=== PATIENT | female | born 1940 | race Caucasian/White ===

== ENCOUNTER 2016-11-22 01:14 | Emergency (ER) | payer MEDICARE, OTHER ==
[2016-11-22] MEDS ORDERED: methylPREDNISolone Sodium Succinate 125 MG/2 ML SDV IM ONE (01:20)
[2016-11-22] MEDS ORDERED: Famotidine 20 MG Tab PO ONE (01:27)
--- NOTE | 2016-11-22 01:28 | EDM.PDOC ---
ED HPI GENERAL MEDICAL PROBLEM - General Chief Complaint: Allergic Reaction Stated Complaint: rash Time Seen by Provider: 11/22/16 01:18 Source of Information: Reports: Patient History Limitations: Reports: No Limitations - History of Present Illness INITIAL COMMENTS - FREE TEXT/NARRATIVE: Developed rash late this evening. Generalized. Pruritic. No new foot/chemical/ plant exposures other than using markers tonight to make a banner. Has not used similar markers in past. No history of similar reactions to anything in past. No SOB. Took Benadryl around midnight. - Related Data Allergies Allergy/AdvReac Type Severity Reaction Status Date / Time Tetanus Vaccines and Toxoid Allergy Rash Verified 11/22/16 01:17 Home Meds: Home Meds traMADol [Ultram] 100 mg PO BID 11/22/16 [History] Past Medical History - Past Health History Medical/Surgical History: Denies Medical/Surgical History ED ROS ALLERGIC REACTION - Review of Systems Review Of Systems: ROS reveals no pertinent complaints other than HPI. Respiratory: Denies: Shortness of Breath, Wheezing, Pleuritic Chest Pain, Cough , Hemoptysis ED EXAM GENERAL NO PERIP PULSE - Physical Exam Exam: See Below Exam Limited By: No Limitations General Appearance: Alert, WD/WN, Other (itching/uncomfortable) Eye Exam: Bilateral Eye: EOMI, Normal Inspection, PERRL Ears: Normal External Exam Nose: Normal Inspection Throat/Mouth: Normal Inspection, Normal Oropharynx, Normal Voice, No Airway Compromise, Other (lips slightly puffy) Head: Atraumatic Neck: Supple, Non-Tender Respiratory/Chest: No Respiratory Distress, Lungs Clear, Normal Breath Sounds, No Accessory Muscle Use Cardiovascular: Regular Rate, Rhythm, No Edema, No Murmur GI/Abdominal: Soft, Non-Tender Back Exam: Normal Inspection Extremities: Normal Inspection, Non-Tender, Normal Capillary Refill Neurological: Alert, Oriented, Normal Cognition, Normal Gait, No Motor/Sensory Deficits Skin Exam: Warm, Dry, Rash (urticarial type rash all over face/neck/trunk/upper extremities. ) Course - Orders/Labs/Meds Meds: Medications Discontinued Medications Generic Name Dose Route Start Last Admin Trade Name Freq PRN Reason Stop Dose Admin Famotidine 20 mg 11/22/16 01:27 11/22/16 01:34 Pepcid PO 11/22/16 01:28 20 mg ONETIME ONE Administration Methylprednisolone Sodium Succinate 125 mg 11/22/16 01:20 11/22/16 01:31 Solu-Medrol IM 11/22/16 01:21 125 mg ONETIME ONE Administration - Re-Assessments/Exams Free Text/Narrative Re-Assessment/Exam: 11/22/16 02:28 Patient received IM Solumedrol and was observed for one hour. Did not complain of any SOB. She did feel that her lips were a little swollen. Rash and itching improved significantly over the hour. Lips felt back to normal. Patient requested to go home. Stable. Admission to observation was offered and she declined. Extensive precautions given prior to patient leaving. Discussed possible future need for Epi-Pen considering the type of reaction she had. At this time she has no other history of allergies and feels that she can avoid using markers again in future, if that is indeed what caused her reaction. She is to return immediately if symptoms return. Patient lives one mile from hospital. Departure - Departure Time of Disposition: :17 Disposition: Home, Self-Care 01 Condition: Good Clinical Impression: Urticaria - Discharge Information Instructions: Anaphylactic Reaction, Angioedema, [id number] Referrals: Darcy Hyman, EMPLOYEE BENEFITS MANAGER [Primary Care Provider] - Additional Instructions: Take Benadryl 2 tablets every 6 hours for 24 hours. After that take 1-2 tablets every 6 hours for the next 24 hours. Take as needed on day 3 onward. Start Prednisone this evening. Take 4 tablets day 1 and 2. Take 3 tablets days 3 and 4. Starting day 6 take 1 tablet daily until bottle is empty. Watch for any return of symptoms and follow up in ER if you have problems. Call ambulance if you have sudden severe problems, such as shortness of breath.
[2016-11-22 04:39] VITALS: BP 129/49
== END 2016-11-22 02:30 | disposition home or self-care (01) ==
LOC: LL.ED 01:14
DX: L50.9 Urticaria, unspecified (principal); Z88.7 Allergy status to serum and vaccine
CPT/HCPCS: 96372; 99283; A9270; J2930

== ENCOUNTER 2017-04-20 07:00 | Day surgery (SDC) | payer MEDICARE, OTHER ==
[~2017-04-20 07:00] MED LIST: Sodium Chloride 0.9% 10 ML Syringe FLUSH PRN
[2017-04-20] MEDS: Lactated Ringers 1,000 ML IV SCH ×2 (07:25→08:57)
[2017-04-20] MEDS ORDERED: fentaNYL 100 MCG/2 ML SDV ONE ×2 (07:55→08:11)
[2017-04-20] MEDS ORDERED: Midazolam 1 MG/ML 2 ML SDV ONE ×2 (07:55→08:11)
[2017-04-20] MEDS ORDERED: Propofol 200 MG/20 ML SDV ONE ×2 (07:56→08:11)
--- NOTE | 2017-04-20 08:16 | PCM.HPR ---
H & P Addendum review - H & P Addendum Review Date of Original H & P: 04/04/17 Date Reviewed: 04/20/17 Time Reviewed: 08:05 Patient was Examined: No Changes
--- NOTE | 2017-04-20 08:55 | PCM.OPNOTE ---
- General Post-Op/Procedure Note Date of Surgery/Procedure: 04/20/17 Operative Procedure(s): Colonoscopy Findings: Melanosis Coli Pre Op Diagnosis: Screening Anesthesia Technique: MAC Primary Surgeon: King oHwell Anesthesia Provider: Irina Butler EBL in mLs: 0 Complications: None Condition: Good Free Text/Narrative:: Intake & Output 04/19/17 04/20/17 04/20/17 22:59 06:59 14:59 Intake Total 1000 Balance 1000
[2017-04-20 09:16] VITALS: BP 123/66
--- NOTE | 2017-04-20 14:43 | OR ---
Date of Procedure: 04/20/2017 PREOPERATIVE DIAGNOSIS: Colon screening. POSTOPERATIVE DIAGNOSIS: Melanosis coli. PROCEDURE: Colonoscopy. ANESTHESIA: IV sedation. DESCRIPTION OF PROCEDURE: The patient was brought to the procedure room, where she was placed on her left side, and IV sedation administered. Digital rectal exam was performed which was normal. Colonoscope was inserted and advanced to the level of the cecum with difficulty getting around the hepatic flexure and ascending colon. With changing to the supine position and providing pressure on the abdomen, I was able to advance into the cecum which was confirmed by identifying the appendiceal lumen and ileocecal valve. Prep was good and surfaces were well visualized. 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 I did not find any polyps or other abnormalities. Retroflexion was normal. Air was removed and the scope withdrawn. The patient tolerated the procedure well and returned to recovery in stable condition. I do not recommend a routine colon screening since she will be over 79 years old in 5 years. PAUL KUNZ MD /[id number]
== END 2017-04-20 10:06 | disposition home or self-care (01) ==
LOC: LL.SDS 07:00
PROVIDERS: ATTEND Surgery
DX: Z12.11 Encounter for screening for malignant neoplasm of colon (principal); K63.89 Other specified diseases of intestine; E78.00 Pure hypercholesterolemia, unspecified; Z79.899 Other long term (current) drug therapy; Z79.891 Long term (current) use of opiate analgesic; Z98.890 Other specified postprocedural states; Z88.8 Allergy status to other drugs, medicaments and biological substances; Z87.891 Personal history of nicotine dependence; J30.2 Other seasonal allergic rhinitis
CPT/HCPCS: G0121; J2250; J2704; J3010; J7120; 00810-QZ

== ENCOUNTER → 2019-03-28 | Outpatient (CLI) | payer MEDICARE, OTHER | LOC: LL.CLIN 11:30 | PROVIDERS: ATTEND Nurse Practitioner | DX: Z23 Encounter for immunization (principal); J00 Acute nasopharyngitis [common cold] | CPT/HCPCS: 90662; 99213; G0008 ==

== ENCOUNTER 2019-04-18 08:32 | Emergency (ER) | payer MEDICARE, OTHER ==
--- NOTE | 2019-04-18 08:46 | EDM.PDOC ---
ED HPI GENERAL MEDICAL PROBLEM - General Chief Complaint: General Stated Complaint: dizziness, nausea Time Seen by Provider: 04/18/19 08:45 Source of Information: Reports: Patient, Family (), Old Records ([facility] chart/EMR), Other ([facility] EMR) History Limitations: Reports: No Limitations - History of Present Illness INITIAL COMMENTS - FREE TEXT/NARRATIVE: The patient was brought to the emergency room via private automobile by her for evaluation of moderate diffuse vertigo, dizziness, and nausea associated with head movement with symptoms starting about 2 AM this morning. No history of known exposure to infection. The patient denies any chest pain/ pressure, heart flutter, orthostasis, orthopnea, diaphoresis, paresthesias, recent decreased exercise tolerance, or any other anginal-type symptoms. No recent history of abdominal pain, heartburn, emesis, diarrhea, melena, gross hematochezia, or any food intolerance, including fatty foods, etc.. The patient also denies any recent fever, cough, wheezing, dyspnea, etc.. No history of recent headaches, visual changes, diplopia, change in mental status, or other change in neurological status. She denies any specific pain or discomfort other than some nonspecific left scapular pain with movement secondary to nailing multiple nails yesterday with no history of acute injury. Onset: Today, Sudden Onset Date: 04/18/19 Onset Time: 02:00 Duration: Constant, Intermittent Location: Reports: Upper Extremity, Left (Left scapular as above). Denies: Head , Face, Neck, Chest, Abdomen, Back, Pelvis, Upper Extremity, Right, Lower Extremity, Right, Radiates to Quality: Reports: Same as Previous Episode, Sharp Severity: Mild Improves with: Reports: Rest Worsens with: Reports: Movement Context: Reports: Other (As above). Denies: Sick Contact, Trauma Associated Symptoms: Reports: Nausea/Vomiting (No emesis ). 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: Other (see below) (None) Right Upper Back Pain Score (Numeric/FACES): 2 (Left scapular) - Related Data Allergies Allergy/AdvReac Type Severity Reaction Status Date / Time Tetanus Vaccines and Toxoid Allergy Rash Verified 04/18/19 08:46 Home Meds: Home Meds traMADol [Ultram] 100 mg PO BID 11/22/16 [History] Krill Oil 1,000 mg PO DAILY 04/20/17 [History] L.acidoph,Paracasei, B.lactis [Probiotic] 1 each PO DAILY 04/20/17 [History] Magnesium Oxide [Magnesium] 400 mg PO BEDTIME 04/20/17 [History] Meloxicam [Mobic] 7.5 mg PO BID PRN 04/20/17 [History] Non-Formulary Medication [NF Drug] 0.25 tsp PO DAILY 04/20/17 [History] Non-Formulary Medication [NF Drug] 2 tsp PO DAILY 04/20/17 [History] Sodium Chloride [Saline Nasal Mist] 1 spray NS ASDIRECTED PRN 04/20/17 [History] Zinc Gluconate [Zinc] 50 mg PO DAILY 04/20/17 [History] Aspirin [Halfprin] 81 mg PO DAILY 04/18/19 [History] Cholecalciferol (Vitamin D3) [Vitamin D3] 1,000 unit PO DAILY 04/18/19 [History] Meclizine HCl 25 mg PO QID PRN #30 tablet 04/18/19 [Rx] Ubidecarenone [Co Q10] 60 mg PO DAILY 04/18/19 [History] Past Medical History - Past Health History Medical/Surgical History: Denies Medical/Surgical History HEENT History: Reports: Allergic Rhinitis, Impaired Vision, Other (See Below). Denies: Cataract, Glaucoma, Hard of Hearing, Macular Degeneration, Otitis Media , Retinal Detachment Other HEENT History: Patient wears glasses. Dry eye syndrome. Allergic rhinitis with previous immunotherapy. Cardiovascular History: Reports: CAD, Cardiomyopathy, Heart Failure, Heart Murmur, High Cholesterol, HI, PVD, Other (See Below) Other Cardiovascular History: HI after pneumonia with possible sepsis. Moderate carotid occlusive disease. Aortic valve stenosis by clinical exam possibly secondary to rheumatic fever as below. 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 Right-sided benign hepatic cyst. Genitourinary History: Reports: None DELINEATOR History: Reports: , Spontaneous : 3 Para: 2 LMP (Approximate): Other (See Below) Other DELINEATOR History: Preeclampsia with first in 1957. SAB during first trimester. Otherwise, Full term without complications during pregnancies or deliveries. Menopause at age 42. Dyspareunia. Musculoskeletal History: Reports: Arthritis, Back Pain, Chronic, Fracture, Fibromyalgia, Neck Pain, Chronic, Osteoarthritis, Osteoporosis Other Musculoskeletal History: History of L3-L4 disc prolapse with additional kyphoscoliosis with back surgeries as below.. Carpal tunnel syndrome. Cervical spondylosis. Positive RACQUEL with no known history of SLE. Bilateral lateral ligament mild tears of the left knee in March 2010 with no surgery required. Questionable left foot fracture on 07/29/15. Neurological History: Reports: Migraines, Other (See Below) Other Neuro History: Benign left frontal meningioma. Psychiatric History: Reports: Addiction, Other (See Below) Other Psychiatric History: group home opioid/Ultram use with pain contract. Endocrine/Metabolic History: Reports: Osteopenia, Osteoporosis, Vitamin D Deficiency, Other (See Below) Other Endocrine/Metabolic History: Hypomagnesemia. Hematologic History: Reports: Other (See Below) Other Hematologic History: History of leukopenia and macrocytosis. Immunologic History: Reports: Immunosuppression, Other (See Below) Other Immunologic History: History of leukopenia. Oncologic (Cancer) History: Reports: None Dermatologic History: Reports: Angiodema, Other (See Below). Denies: Eczema, Psoriasis Other Dermatologic History: Angioedema secondary to allergic reaction on 11/22/16. 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 - Past Surgical History HEENT Surgical History: Reports: Adenoidectomy, Naso-Sinus Surgery, Tonsillectomy, Other (See Below) Other HEENT Surgeries/Procedures: Tonsillectomy and adenoidectomy at age 11. Endoscopic sinus surgery on 09/16/05. GI Surgical History: Reports: Appendectomy, Colonoscopy, Other (See Below) Other GI Surgeries/Procedures: Colonoscopy on 04/20/17, 08/25/11, and 07/14/05. Female Surgical History: Reports: Breast Reconstruction, Other (See Below) Other Female Surgeries/Procedures: Bilateral breast reduction on 01/01/14. Neurological Surgical History: Reports: Laminectomy, Lumbar Spine, Spinal Fusion , Vertebroplasty, Other (See Below) Other Neurological Surgeries/Procedures: L3for laminectomy in 1983 with 4 previous back surgeries including an L3L5 spinal fusion with concomitant bone graft on 08/06/08 with subsequent L5 screw revision and L4-5 laminectomy on . L1 vertebroplasty on 02/03/12. Musculoskeletal Surgical History: Reports: Other (See Below) Other Musculoskeletal Surgeries/Procedures:: ORIF of right thumb secondary to arthritic changes on 08/05/14. Oncologic Surgical History: Reports: Bone Marrow Aspiration, Other (See Below) Other Oncologic Surgeries/Procedures: Bone marrow needle aspiration biopsy on 11/26/12. - Past Imaging History Past Imaging History: Reports: Bone Scan (Bone scan of the feet on 04/28/06), Cardiac Echo (03/06/19 and 09/12/18.), Carotid US (07/01/08 and 09/01/06.), CAT Scan (CT of the lumbar spine on 02/13/12. CT of the chest on 02/27/18. CT of the cervical spine on 02/10/17. CT of the sinuses on 08/31/05), DEXA Scan (Last on .), Mammogram (Last mammogram on 03/06/19), MRI (MRI of the thoracic spine on 11/13/12 and 05/01/12. MRI of the lumbar spine on 05/01/12 and 11/29/11. MRI of the left knee on 04/07/10. MRI of the cervical spine on 10/14/08. MRI of the brain on 10/14/08.), PFT, Ultrasound (Pelvic ultrasound on 01/23/13. Abdominal aortic ultrasound on 07/01/08. Abdominal ultrasound on 05/21/02.) Social & Family History - Family History Cardiac: Reports: Cardiomyopathy, Heart Failure, Other (See Below) Other Cardiac Family History: Father with fatal CHF in his 80s. Musculoskeletal: Reports: SLE, Other (See Below) Other Musculoskeletal Family History: Niece with SLE. Neurological: Reports: CVA, Other (See Below) Other Neurological Family History: Father with CVA in his 70s with mother having a CVA in her 80s. Endocrine/Metabolic: Reports: Diabetes, type II, IDDM, Other (See Below) Other Endocrine/Metabolic Family History: Maternal grandmother, maternal uncle, and maternal cousin with IDDM. Oncologic: Reports: Other (See Below) Other Oncologic Family History: Paternal grandfather with unknown type of fatal cancer in his 60s. - Tobacco Use Smoking Status *Q: Former Smoker Tobacco Use Within Last Twelve Months: No Years of Tobacco use: 10 Packs/Tins Daily: 0.5 Packs/Tins Daily Comment: Smoked between 0.51 packs per day between ages 19 and 29. Used Tobacco, but Quit: Yes Smoking Cessation Information Provided To Patient: No Second Hand Smoke Exposure: No Second Hand Smoke Education Provided: No - Caffeine Use Caffeine Use: Reports: Coffee Caffeine Use Comment: 2-3 cups a day - Living Situation & Occupation Living situation: Reports: (1958. 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 ED EXAM, GENERAL - Physical Exam Exam: See Below Exam Limited By: No Limitations General Appearance: Alert, WD/WN, No Apparent Distress Eye Exam: Bilateral Eye: EOMI, Normal Fundi, Normal Inspection (No nystagmus but some vertigo with forward head movement), PERRL Ears: Normal External Exam, Normal Canal, Hearing Grossly Normal, Normal TMs Nose: Normal Inspection, Normal Mucosa, No Blood Throat/Mouth: Normal Inspection, Normal Lips, Normal Teeth (Multiple missing teeth), Normal Gums, Normal Oropharynx, Normal Voice, No Airway Compromise. No : Dysphagia, Perioral Cyanosis Head: Atraumatic, Normocephalic. No: Facial Swelling, Facial Tenderness, Sinus Tenderness Neck: Supple, Non-Tender, Full Range of Motion, Carotid Bruit (Mild bilateral carotid bruits versus transmitted heart sounds). No: Lymphadenopathy (L), Lymphadenopathy (R), Thyromegaly Respiratory/Chest: No Respiratory Distress, Lungs Clear, Normal Breath Sounds, No Accessory Muscle Use, Chest Non-Tender. No: Pleural Rub, Retractions Cardiovascular: Normal Peripheral Pulses, Regular Rate, Rhythm, No Edema, No Gallop, No JVD, No Rub, Systolic Murmur (2/6 NORA of the aortic valve with borderline 1/6 NORA of the mitral valve.). No: No Murmur, Gallop/S3, Gallop/S4, Friction Rub Peripheral Pulses: 2+: Radial (L), Radial (R), Dorsalis Pedis (L), Dorsalis Pedis (R) GI/Abdominal: Normal Bowel Sounds, Soft, Non-Tender, No Organomegaly, No Distention, No Abnormal Bruit, No Mass. No: Guarding (Female) Exam: Deferred Rectal (Female) Exam: Deferred Back Exam: Other (Mild palpation pain over the superior left scapula with no local swelling, ecchymosis, etc.). No: CVA Tenderness (L), CVA Tenderness (R), Muscle Spasm, Paraspinal Tenderness, Vertebral Tenderness Extremities: Normal Inspection, Normal Range of Motion, Non-Tender, No Pedal Edema, Normal Capillary Refill. No: Armida's Sign Neurological: Alert, Oriented, CN II-XII Intact, Normal Cognition, Normal Gait, Normal Reflexes (Negative Babinski's, finger to nose, and pronator rotation tests. No evidence of facial paresis, tongue deviation, orthostasis, etc.. Excellent reverse thought processes.), No Motor/Sensory Deficits Psychiatric: Normal Affect, Normal Mood Skin Exam: Warm, Dry, Intact, Normal Color, No Rash. No: Diaphoretic, Wound/ Incision Lymphatic: No Adenopathy Course - Vital Signs Last Recorded V/S: Last Vital Signs Temp 36.4 C 04/18/19 08:34 Pulse 66 04/18/19 08:46 Resp 15 04/18/19 08:46 BP 124/83 04/18/19 08:46 Pulse Ox 98 04/18/19 08:46 Vital Signs - 24 hr 04/18/19 04/18/19 08:34 08:46 Temperature [ 36.4 C Temporal] Pulse, 67 66 Peripheral [ Pulse Oximetry] Respiratory 16 15 Rate Blood Pressure 148/66 H 124/83 [Left Upper Arm ] O2 Sat by Pulse 99 98 Oximetry - Orders/Labs/Meds Orders: Active Orders 24 hr Category Date Time Status Cardiac Monitoring [RC] . DIRECTED Care 04/18/19 08:45 Active Obtain Past Medical Record [OM.PC] Routine Oth 04/18/19 08:47 Active Labs: None Meds: Medications Discontinued Medications Generic Name Dose Route Start Last Admin Trade Name [place] PRN Reason Stop Dose Admin Methylprednisolone Acetate 80 mg 04/18/19 09:03 04/18/19 09:22 Depo-Medrol IM 04/18/19 09:04 80 mg ONETIME ONE Administration - Radiology Interpretation Free Text/Narrative:: None Departure - Departure Time of Disposition: 09:40 Disposition: Home, Self-Care 01 Condition: Good Clinical Impression: Heart murmur Labyrinthitis Qualifiers: Laterality: unspecified laterality Qualified Code(s): H83.09 - Labyrinthitis, unspecified ear Coronary artery disease Qualifiers: Coronary Disease-Associated Artery/Lesion type: [place] artery [place] vs. transplanted heart: [place] heart Associated angina: without angina Qualified Code(s): I25.10 - Atherosclerotic heart disease of [place] coronary artery without angina pectoris Osteoarthritis Qualifiers: Osteoarthritis location: multiple joints Osteoarthritis type: primary Qualified Code(s): M15.0 - Primary generalized (osteo)arthritis - Discharge Information *PRESCRIPTION DRUG MONITORING PROGRAM REVIEWED*: Not Applicable *COPY OF PRESCRIPTION DRUG MONITORING REPORT IN PATIENT JOE: Not Applicable Prescriptions: Meclizine HCl 25 mg PO QID PRN #30 tablet PRN Reason: Dizziness Instructions: Labyrinthitis, [id number], Methylprednisolone Suspension for Injection Referrals: Darcy Hyman, SLEEP LAB TECHNOLOGIST [Primary Care Provider] - Forms: ED Department Discharge Additional Instructions: 1. Follow up with your regular provider in 10-14 days as needed, if symptoms persist. Bring these discharge instructions with you to that visit.. 2. Fall precautions with current dizziness as discussed 3. Immediately after this visit verify that your cellular telephone's voicemail has been activated and is empty. Also verify that your home telephone 's answering machine is operating properly and has space to receive messages. Note that it is sometimes necessary for us to be able to contact you at a later date to discuss your medical care. 4. Please remember that we are ALWAYS here for you and want to answer any questions you may have. Feel free to call the hospital any time and we call you back ABNER. 5. Sedation, dry mouth, confusion, etc. precautions as discussed when taking the OTC meclizine - Problem List & Annotations (1) Labyrinthitis SNOMED Code(s): 61943860 Code(s): H83.09 - LABYRINTHITIS, UNSPECIFIED EAR Status: Acute Priority: High Onset Date: 04/18/19 Annotation/Comment:: Note that her pet cat has had similar type symptoms, which were resolved with recent prednisone. Symptomatic relief as per discharge instructions. No indication for antibiotic therapy at this time. Continue to observe symptoms closely secondary to her previous history of carotid occlusive disease with consideration of repeat carotid artery Doppler studies, if symptoms remain refractory to therapy. Qualifiers: Laterality: unspecified laterality Qualified Code(s): H83.09 - Labyrinthitis, unspecified ear (2) Coronary artery disease SNOMED Code(s): 16202770 Code(s): I25.10 - ATHSCL HEART DISEASE OF [place] CORONARY ARTERY W/O ANG PCTRS Status: Chronic Priority: Medium Annotation/Comment:: No chest pain or anginal type symptoms. Qualifiers: Coronary Disease-Associated Artery/Lesion type: [place] artery [place] vs. transplanted heart: [place] heart Associated angina: without angina Qualified Code(s): I25.10 - Atherosclerotic heart disease of [place] coronary artery without angina pectoris (3) Heart murmur SNOMED Code(s): 09391456 Code(s): R01.1 - CARDIAC MURMUR, UNSPECIFIED Status: Chronic Priority: Medium Annotation/Comment:: Probable aortic valve stenosis likely secondary to previous rheumatic fever. Continue to observe closely by her regular provider with consideration of echocardiogram, etc. (4) Osteoarthritis SNOMED Code(s): 093904850 Code(s): M19.90 - UNSPECIFIED OSTEOARTHRITIS, UNSPECIFIED SITE Status: Chronic Priority: Medium Annotation/Comment:: Stable by history Qualifiers: Osteoarthritis location: multiple joints Osteoarthritis type: primary Qualified Code(s): M15.0 - Primary generalized (osteo)arthritis - Problem List Review Problem List Initiated/Reviewed/Updated: Yes - My Orders Last 24 Hours: My Active Orders 04/18/19 08:45 Cardiac Monitoring [RC] . DIRECTED 04/18/19 08:47 Obtain Past Medical Record [OM.PC] Routine - Assessment/Plan Last 24 Hours: My Active Orders 04/18/19 08:45 Cardiac Monitoring [RC] . DIRECTED 04/18/19 08:47 Obtain Past Medical Record [OM.PC] Routine Assessment:: As above Plan: As above. Extensive precautions were given to the patient and her , who are in agreement with the treatment plan. See Patient Instructions for further treatment and plan.
[2019-04-18 08:47] VITALS: BP 124/83; PULSE 66
[2019-04-18] MEDS ORDERED: methylPREDNISolone Acetate 80 MG/ML SDV IM ONE (09:03)
== END 2019-04-18 09:40 | disposition home or self-care (01) ==
LOC: LL.ED 08:32
DX: R01.1 Cardiac murmur, unspecified (principal); H83.09 Labyrinthitis, unspecified ear; I25.10 Atherosclerotic heart disease of native coronary artery without angina pectoris; I25.2 Old myocardial infarction; M15.0 Primary generalized (osteo)arthritis; J44.9 Chronic obstructive pulmonary disease, unspecified; Z87.891 Personal history of nicotine dependence; Z79.82 Long term (current) use of aspirin
CPT/HCPCS: 99283; J1040

== ENCOUNTER 2020-05-26 18:55 | Emergency (ER) | payer MEDICARE, OTHER ==
[2020-05-26] MEDS ORDERED: Meclizine 25 MG Tab PO ONE (19:18)
[2020-05-26] MEDS ORDERED: Meclizine 25 MG Tab ONE ×2 (19:22→19:23)
[2020-05-26 19:31] VITALS: BP 139/55; PULSE 71
[2020-05-26] MEDS ORDERED: Ondansetron 4 MG/2 ML SDV IVPUSH ONE (19:37)
[2020-05-26] MEDS ORDERED: Sodium Chloride 0.9% 500 ML IV SCH (19:45)
[2020-05-26 19:53] LABS: CHLORIDE,CL 103 mmol/L (98-107); SODIUM,NA 138 mmol/L (136-145)
--- NOTE | 2020-05-26 20:11 | EDM.PDOC ---
ED HPI GENERAL MEDICAL PROBLEM - General Chief Complaint: General Stated Complaint: nausea Time Seen by Provider: 05/26/20 19:10 Source of Information: Reports: Patient History Limitations: Reports: No Limitations - History of Present Illness INITIAL COMMENTS - FREE TEXT/NARRATIVE: Pt presents with vertigo symptoms that began this AM Much worse when moves around or moves head Better when sitting still or lying down Has had same in past Pt with N/V when dizziness is at the worse No trauma No neuro symptoms Back Pain Score (Numeric/FACES): 6 - Related Data Allergies Allergy/AdvReac Type Severity Reaction Status Date / Time Tetanus Vaccines and Toxoid Allergy Rash Verified 05/26/20 19:02 Home Meds: Home Meds traMADol [Ultram] 100 mg PO BID 11/22/16 [History] Krill Oil 1,000 mg PO DAILY 04/20/17 [History] L.acidoph,Paracasei, B.lactis [Probiotic] 1 each PO DAILY 04/20/17 [History] Magnesium Oxide [Magnesium] 400 mg PO BEDTIME 04/20/17 [History] Meloxicam [Mobic] 7.5 mg PO BID PRN 04/20/17 [History] Non-Formulary Medication [NF Drug] 0.25 tsp PO DAILY 04/20/17 [History] Non-Formulary Medication [NF Drug] 2 tsp PO DAILY 04/20/17 [History] Sodium Chloride [Saline Nasal Mist] 1 spray NS ASDIRECTED PRN 04/20/17 [History] Zinc Gluconate [Zinc] 50 mg PO DAILY 04/20/17 [History] Aspirin [Halfprin] 81 mg PO DAILY 04/18/19 [History] Cholecalciferol (Vitamin D3) [Vitamin D3] 1,000 unit PO DAILY 04/18/19 [History] Ubidecarenone [Co Q10] 60 mg PO DAILY 04/18/19 [History] carvediloL [Coreg] 3.125 mg PO BID 05/26/20 [History] Past Medical History - Past Health History Medical/Surgical History: Denies Medical/Surgical History HEENT History: Reports: Allergic Rhinitis, Impaired Vision, Other (See Below) Other HEENT History: Patient wears glasses. Dry eye syndrome. Allergic rhinitis with previous immunotherapy. Cardiovascular History: Reports: CAD, Cardiomyopathy, Heart Failure, Heart Murmur, High Cholesterol, [place], PVD, Other (See Below) Other Cardiovascular History: [place] after pneumonia with possible sepsis. Moderate carotid occlusive disease. Aortic valve stenosis by clinical exam possibly secondary to rheumatic fever as below. 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 Right-sided benign hepatic cyst. Genitourinary History: Reports: None STRATEGIC DEVELOPMENT MANAGER History: Reports: , Spontaneous Other STRATEGIC DEVELOPMENT MANAGER History: Preeclampsia with first in 1957. SAB during first trimester. Otherwise, Full term without complications during pregnancies or deliveries. Menopause at age 42. Dyspareunia. Musculoskeletal History: Reports: Arthritis, Back Pain, Chronic, Fracture, Fibromyalgia, Neck Pain, Chronic, Osteoarthritis, Osteoporosis Other Musculoskeletal History: History of L3-L4 disc prolapse with additional kyphoscoliosis with back surgeries as below.. Carpal tunnel syndrome. Cervical spondylosis. Positive RACQUEL with no known history of SLE. Bilateral lateral ligament mild tears of the left knee in March 2010 with no surgery required. Questionable left foot fracture on 07/29/15. Neurological History: Reports: Migraines, Other (See Below) Other Neuro History: Benign left frontal meningioma. 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 Endocrine/Metabolic History: Reports: Osteopenia, Osteoporosis, Vitamin D Deficiency, Other (See Below) Other Endocrine/Metabolic History: Hypomagnesemia. Hematologic History: Reports: Other (See Below) Other Hematologic History: History of leukopenia and macrocytosis. Immunologic History: Reports: Immunosuppression, Other (See Below) Other Immunologic History: History of leukopenia. Oncologic (Cancer) History: Reports: None Dermatologic History: Reports: Angiodema, Other (See Below) Other Dermatologic History: Angioedema secondary to allergic reaction on 11/22/16. 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 - Past Surgical History HEENT Surgical History: Reports: Adenoidectomy, Naso-Sinus Surgery, Tonsillec dominga, Other (See Below) Other HEENT Surgeries/Procedures: Tonsillectomy and adenoidectomy at age 11. Endoscopic sinus surgery on 09/16/05. GI Surgical History: Reports: Appendectomy, Colonoscopy, Other (See Below) Other GI Surgeries/Procedures: Colonoscopy on 04/20/17, 08/25/11, and 07/14/05. Female Surgical History: Reports: Breast Reconstruction, Other (See Below) Other Female Surgeries/Procedures: Bilateral breast reduction on 01/01/14. Neurological Surgical History: Reports: Laminectomy, Lumbar Spine, Spinal Fusion, Vertebroplasty, Other (See Below) Other Neurological Surgeries/Procedures: L3for laminectomy in 1983 with 4 previous back surgeries including an L3L5 spinal fusion with concomitant bone graft on 08/06/08 with subsequent L5 screw revision and L4-5 laminectomy on 08/12/08. L1 vertebroplasty on 02/03/12. Musculoskeletal Surgical History: Reports: Other (See Below) Other Musculoskeletal Surgeries/Procedures:: ORIF of right thumb secondary to arthritic changes on 08/05/14. Oncologic Surgical History: Reports: Bone Marrow Aspiration, Other (See Below) Other Oncologic Surgeries/Procedures: Bone marrow needle aspiration biopsy on 11/26/12. - Past Imaging History Past Imaging History: Reports: Bone Scan (Bone scan of the feet on 04/28/06), Cardiac Echo (03/06/19 and 09/12/18.), Carotid US (07/01/08 and 09/01/06.), CAT Scan (CT of the lumbar spine on 02/13/12. CT of the chest on 02/27/18. CT of the cervical spine on 02/10/17. CT of the sinuses on 08/31/05), DEXA Scan (Last on 10/14/16.), Mammogram (Last mammogram on 03/06/19), MRI (MRI of the thoracic spine on 11/13/12 and 05/01/12. MRI of the lumbar spine on 05/01/12 and 11/29/11. MRI of the left knee on 04/07/10. MRI of the cervical spine on 10/14/08. MRI of the brain on 10/14/08.), PFT, Ultrasound (Pelvic ultrasound on 01/23/13. Abdominal aortic ultrasound on 2/10/09. Abdominal ultrasound on 05/21/02.) Social & Family History - Family History Cardiac: Reports: Cardiomyopathy, Heart Failure, Other (See Below) Other Cardiac Family History: Father with fatal CHF in his 80s. Musculoskeletal: Reports: SLE, Other (See Below) Other Musculoskeletal Family History: Niece with SLE. Neurological: Reports: CVA, Other (See Below) Other Neurological Family History: Father with CVA in his 70s with mother having a CVA in her 80s. Endocrine/Metabolic: Reports: Diabetes, type II, IDDM, Other (See Below) Other Endocrine/Metabolic Family History: Maternal grandmother, maternal uncle, and maternal cousin with IDDM. Oncologic: Reports: Other (See Below) Other Oncologic Family History: Paternal grandfather with unknown type of fatal cancer in his 60s. - Caffeine Use Caffeine Use: Reports: Coffee Caffeine Use Comment: 2-3 cups a day - Living Situation & Occupation Living situation: Reports: (1958. 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.) ED ROS GENERAL - Review of Systems Review Of Systems: See Below Constitutional: Reports: No Symptoms HEENT: Reports: No Symptoms Respiratory: Reports: No Symptoms Cardiovascular: Reports: No Symptoms GI/Abdominal: Reports: Nausea, Vomiting Musculoskeletal: Reports: No Symptoms Neurological: Reports: Dizziness ED EXAM, GENERAL - Physical Exam Exam: See Below Exam Limited By: No Limitations General Appearance: Alert, WD/WN, Mild Distress Eye Exam: Bilateral Eye: EOMI, PERRL Ears: Normal TMs Nose: Normal Inspection Throat/Mouth: Normal Oropharynx Head: Atraumatic Neck: Supple, Non-Tender Respiratory/Chest: Lungs Clear Cardiovascular: Regular Rate, Rhythm GI/Abdominal: Soft, Non-Tender Extremities: Normal Inspection Neurological: Alert, Oriented, No Motor/Sensory Deficits, Other (Dizzy with movement Resolves when not moving) Psychiatric: Normal Affect Course - Vital Signs Last Recorded V/S: Last Vital Signs Temp 98 F 05/26/20 19:28 Pulse 71 05/26/20 19:28 Resp 16 05/26/20 19:28 BP 139/55 L 05/26/20 19:28 Pulse Ox 100 05/26/20 19:28 - Orders/Labs/Meds Orders: Active Orders 24 hr Category Date Time Status Sodium Chloride 0.9% [Normal Saline] 500 ml Med 05/26/20 19:45 Active IV .BOLUS Medication Orders Sodium Chloride (Normal Saline) 500 mls @ 500 mls/hr IV .BOLUS CAROLYN Last Admin: 05/26/20 20:02 Dose: 500 mls/hr Documented by: [id number] Labs: Laboratory Tests 05/26/20 05/26/20 Range/Units 19:30 19:30 WBC 7.1 (4.0-10.2) K/uL RBC 4.28 (3.77-5.09) M/uL Hgb 14.4 (11.7-15.5) g/dL Hct 41.8 (34.0-46.0) % MCV 97.7 (84.0-98.0) fL MCH 33.6 H (28.2-33.3) pg MCHC 34.4 (31.7-36.0) g/dL RDW 12.2 (11.2-14.1) % Plt Count 126 L (150-350) K/uL Add Manual Diff Yes Neutrophils % (Manual) 81 Lymphocytes % (Manual) 18 Monocytes % (Manual) 1 Absolute Neutrophils 5.7510 Lymphocytes # (Manual) 1.2780 Monocytes # (Manual) 0.0710 Sodium 138 (136-145) mmol/L Potassium 3.8 (3.5-5.1) mmol/L Chloride 103 (98-107) mmol/L Carbon Dioxide 25.8 (21.0-32.0) mmol/L BUN 20 H (7-18) mg/dL Creatinine 0.54 (0.51-1.17) mg/dL Est Cr Clr Drug Dosing 58.69 mL/min Estimated GFR (MDRD) > 60 mL/min Glucose 139 H (74-106) mg/dL Calcium 9.1 (8.5-10.1) mg/dL Meds: Medications Generic Name Dose Route Start Last Admin Trade Name Freq PRN Reason Stop Dose Admin Sodium Chloride 500 mls @ 500 mls/hr 05/26/20 19:45 05/26/20 20:02 Normal Saline IV 500 mls/hr .BOLUS CAROLYN Administration Discontinued Medications Generic Name Dose Route Start Last Admin Trade Name Freq PRN Reason Stop Dose Admin Meclizine HCl 25 mg 05/26/20 19:18 05/26/20 19:25 Antivert PO 05/26/20 19:19 25 mg ONETIME ONE Administration Meclizine HCl Confirm 05/26/20 19:22 05/26/20 19:26 Antivert Administered 05/26/20 19:23 Not Given Dose 25 mg .ROUTE .STK-MED ONE Meclizine HCl Confirm 05/26/20 19:23 05/26/20 19:26 Antivert Administered 05/26/20 19:24 Not Given Dose 25 mg .ROUTE .STK-MED ONE Ondansetron HCl 8 mg 05/26/20 19:37 05/26/20 19:53 Zofran IVPUSH 05/26/20 19:38 8 mg ONETIME ONE Administration - Re-Assessments/Exams Free Text/Narrative Re-Assessment/Exam: 05/26/20 20:07 Pt given 500 cc NS IV, Zofran 8 mg IV and Meclizine 25 mg PO in ER with improved symptoms Rx Meclizine 25 mg PO TID prn Rx Zofran 8 mg ODT every 8 hours prn Departure - Departure Time of Disposition: 20:30 Disposition: Home, Self-Care 01 Clinical Impression: Vertigo Labyrinthitis Qualifiers: Laterality: unspecified laterality Qualified Code(s): H83.09 - Labyrinthitis, unspecified ear - Discharge Information *PRESCRIPTION DRUG MONITORING PROGRAM REVIEWED*: Not Applicable *COPY OF PRESCRIPTION DRUG MONITORING REPORT IN PATIENT JOE: Not Applicable Instructions: Labyrinthitis, [id number], Dizziness, Nicd-ei-Cane, How to Perform the Caitlny Maneuver Referrals: Darcy Hyman, DOOR TO DOOR SELLING AGENT [Primary Care Provider] - Additional Instructions: Follow up in clinic for referral for Caitlyn maneuver Rx Zofran 8 mg ODT every 8 hours for N/V Rx Meclizine 25 mg every 8 hours for dizziness Sepsis Event Note (ED) - Evaluation Sepsis Screening Result: No Definite Risk - Focused Exam Vital Signs: Vital Signs Temp Pulse Resp BP Pulse Ox 05/26/20 19:28 98 F 71 16 139/55 L 100 - My Orders Last 24 Hours: My Active Orders 05/26/20 19:45 Sodium Chloride 0.9% [Normal Saline] 500 ml IV .BOLUS - Assessment/Plan Last 24 Hours: My Active Orders 05/26/20 19:45 Sodium Chloride 0.9% [Normal Saline] 500 ml IV .BOLUS
== END 2020-05-26 21:30 | disposition home or self-care (01) ==
LOC: LL.ED 18:55
DX: H83.09 Labyrinthitis, unspecified ear (principal); I50.9 Heart failure, unspecified; I25.10 Atherosclerotic heart disease of native coronary artery without angina pectoris; J44.9 Chronic obstructive pulmonary disease, unspecified; Z88.7 Allergy status to serum and vaccine; Z79.899 Other long term (current) drug therapy; Z79.82 Long term (current) use of aspirin
CPT/HCPCS: 36415; 80048; 85025; 96374; 99283; 99284-25; A9270-GY; J2405; J7040